=== PATIENT | male | born 1960 | race African-American/Black ===

== ENCOUNTER 2022-04-11 17:31 | Inpatient (IN) | payer BC ==
[2022-04-11 19:23] VITALS: BMI 18.8
[2022-04-11] MEDS ORDERED: Ondansetron ODT 4 MG TAB PO PRN (20:47)
[2022-04-11] MEDS ORDERED: Acetaminophen 325 MG TAB PO PRN (20:47)
[2022-04-11] MEDS ORDERED: guaiFENesin ER 600 MG TAB PO SCH (21:00)
[2022-04-11] MEDS: Oseltamivir 75 MG CAP PO SCH (21:07)
[2022-04-11] MEDS: Famotidine 20 MG TAB PO SCH (21:41)
[2022-04-11] MEDS ORDERED: guaiFENesin ER 600 MG TAB PO PRN (22:01)
[2022-04-12 07:33] LABS: #Lymphocytes 1.3 thou/uL (1.20-3.40); #Monocytes 0.9 thou/uL (0.11-0.59); #Neutrophils 9.8 thou/uL (1.40-6.50); %Basophils 0.1 % (0.0-1.0); %Lymphocytes 10.5 % (21.0-51.0); %Monocytes 7.3 % (0.0-10.0); Hemoglobin 12.3 g/dL (14.0-18.0); Mean Corpuscular HGB CONC 31.1 g/dL (32.0-36.0); Mean Corpuscular Hemoglobin 31.8 pg (27.0-31.0); Mean Platelet Volume 8.3 fL (7.4-10.4); Platelet Count 207 10x3/uL (130-400); RBC Distribution Width 12.2 % (11.5-14.5); Red Blood Cell (RBC) Count 3.86 mill/uL (4.70-6.10)
[2022-04-12 07:54] LABS: ALT (SGPT) 16 U/L (8-55); AST (SGOT) 22 U/L (5-34); Albumin 3.3 g/dL (3.5-5.0); Alkaline Phosphatase 64 U/L (40-110); Anion Gap 11 mmol/L (10-20); BUN (Urea Nitrogen) 13 mg/dL (8.4-25.7); Bilirubin, Total 0.4 mg/dL (0.2-1.2); Calc. Creatinine Clearance 78 mL/min (70-130); Carbon Dioxide 26 mmol/L (22-29); Chloride 104 mmol/L (98-107); Estimated GFR 102; Globulin 4.1 g/dL (2.4-3.5); Glucose 128 mg/dL (70-105); Protein, Total 7.4 g/dL (6.0-8.3); Sodium 136 mmol/L (136-145)
[2022-04-12] MEDS: Oseltamivir 75 MG CAP PO SCH ×2 (09:45→21:12)
[2022-04-12] MEDS: predniSONE 20 MG TAB PO SCH (09:45)
[2022-04-12] MEDS: Famotidine 20 MG TAB PO SCH ×2 (09:45→21:12)
[2022-04-12] MEDS: Enoxaparin Sodium 30 MG/0.3 ML SYRINGE SC SCH (09:45)
[2022-04-12] MEDS: Azithromycin 250 MG TAB PO SCH (09:45)
[2022-04-12] MEDS ORDERED: cefTRIAXone\\ROCEPHIN 1 GM in Sodium Chloride 0.9% 100 ML IVPB SCH (15:00)
[2022-04-12] MEDS: Mometasone 200 MCG/Formoterol 5 MCG 120 PUFF INHALER INH SCH (18:52)
[2022-04-13] MEDS: Mometasone 200 MCG/Formoterol 5 MCG 120 PUFF INHALER INH SCH (07:10)
[2022-04-13 07:20] LABS: ALT (SGPT) 30 U/L (8-55); AST (SGOT) 38 U/L (5-34); Albumin 3.2 g/dL (3.5-5.0); Alkaline Phosphatase 75 U/L (40-110); Anion Gap 13 mmol/L (10-20); BUN (Urea Nitrogen) 14 mg/dL (8.4-25.7); Bilirubin, Total 0.4 mg/dL (0.2-1.2); Calc. Creatinine Clearance 80 mL/min (70-130); Calcium 8.8 mg/dL (7.8-10.44); Carbon Dioxide 24 mmol/L (22-29); Chloride 104 mmol/L (98-107); Estimated GFR 103; Globulin 4.1 g/dL (2.4-3.5); Glucose 100 mg/dL (70-105); Potassium 3.8 mmol/L (3.5-5.1); Protein, Total 7.3 g/dL (6.0-8.3); Sodium 137 mmol/L (136-145)
[2022-04-13 07:26] LABS: Hemoglobin 12.1 g/dL (14.0-18.0); Mean Corpuscular HGB CONC 32.1 g/dL (32.0-36.0); Mean Corpuscular Hemoglobin 32.5 pg (27.0-31.0); Mean Platelet Volume 8.2 fL (7.4-10.4); Platelet Count 302 10x3/uL (130-400); RBC Distribution Width 12.4 % (11.5-14.5); Red Blood Cell (RBC) Count 3.73 mill/uL (4.70-6.10); White Blood Cell (WBC) Count 14.6 10x3/uL (4.8-10.8)
[2022-04-13 07:46] VITALS: BP 106/63; TEMP 97.2
[2022-04-13 08:21] LABS: #Monocytes 1.2 thou/uL (0.11-0.59); #Neutrophils 11.3 thou/uL (1.40-6.50); %Eosinophils 0.1 % (0.0-10.0); %Lymphocytes 13.8 % (21.0-51.0); %Monocytes 8.5 % (0.0-10.0); %Neutrophils 77.6 % (42.0-75.0); Band 14 % (5-11); Lymphocytes 16 % (21-51); MDiff Complete? YES; Monocytes 1 % (0-10); Neutrophil 69 % (42-75); Platelet Morphology Comment Appears Adequate; RBC Morphology Normal
[2022-04-13] MEDS: Enoxaparin Sodium 30 MG/0.3 ML SYRINGE SC SCH (08:33)
[2022-04-13] MEDS: Famotidine 20 MG TAB PO SCH (08:33)
[2022-04-13] MEDS: Azithromycin 250 MG TAB PO SCH (08:34)
[2022-04-13] MEDS: Oseltamivir 75 MG CAP PO SCH (08:34)
[2022-04-13] MEDS: predniSONE 20 MG TAB PO SCH (08:34)
== END 2022-04-13 12:38 | disposition home or self-care (01) | DRG 193 ==
LOC: T4-B 18:53 → INTOOBSV 18:53 → OBSVTOIN 04-12 10:13
PROVIDERS: ADMIT Student in an Organized Health Care Education/Training Program; ATTEND Student in an Organized Health Care Education/Training Program
DX: J10.1 Influenza due to other identified influenza virus with other respiratory manifestations (principal); J96.01 Acute respiratory failure with hypoxia; J44.1 Chronic obstructive pulmonary disease with (acute) exacerbation; J44.0 Chronic obstructive pulmonary disease with (acute) lower respiratory infection; I10 Essential (primary) hypertension; J15.9 Unspecified bacterial pneumonia; E78.5 Hyperlipidemia, unspecified; E86.0 Dehydration; Z90.49 Acquired absence of other specified parts of digestive tract; Z87.891 Personal history of nicotine dependence; Z79.899 Other long term (current) drug therapy
CPT/HCPCS: 36415; 80053; 84145; 85025; 87081; 94640; 94664; 96372; G0378; J1650; J7512; J7620

== ENCOUNTER 2022-09-27 15:16 | Inpatient (IN) | payer BC ==
[2022-09-27 17:29] VITALS: BMI 22.6
[2022-09-27] MEDS ORDERED: Acetaminophen 325 MG TAB PO PRN (18:24)
[2022-09-27] MEDS ORDERED: Ondansetron ODT 4 MG TAB PO PRN (18:24)
[2022-09-27] MEDS ORDERED: Ondansetron PF 4 MG/2 ML Vial IVP PRN (18:24)
[2022-09-27 19:24] LABS: SARS-CoV-2 NAA Rapid Test Not Detected (NotDetected)
[2022-09-27] MEDS: Famotidine 20 MG TAB PO SCH (20:07)
[2022-09-27] MEDS ORDERED: Albuterol 200 PUFF (6.7GM INHALER) INH PRN (23:43)
[2022-09-28] MEDS: Ketorolac Tromethamine 30 MG/ML VIAL IVP SCH ×4 (00:14→16:32)
[2022-09-28 06:43] LABS: #Eosinphils 0.2 thou/uL (0.0-0.7); #Monocytes 1.1 thou/uL (0.11-0.59); #Neutrophils 4.5 thou/uL (1.40-6.50); %Basophils 0.4 % (0.0-1.0); %Eosinophils 2.7 % (0.0-10.0); %Lymphocytes 24.8 % (21.0-51.0); %Monocytes 14.1 % (0.0-10.0); %Neutrophils 57.6 % (42.0-75.0); Hemoglobin 11.3 g/dL (14.0-18.0); Mean Corpuscular Hemoglobin 29.5 pg (27.0-31.0); Mean Platelet Volume 8.9 fL (7.4-10.4); Platelet Count 372 10x3/uL (130-400); RBC Distribution Width 13.9 % (11.5-14.5); Red Blood Cell (RBC) Count 3.83 mill/uL (4.70-6.10); White Blood Cell (WBC) Count 7.9 10x3/uL (4.8-10.8)
[2022-09-28 07:05] LABS: Anion Gap 11 mmol/L (10-20); BUN (Urea Nitrogen) 11 mg/dL (8.4-25.7); Calc. Creatinine Clearance 68 mL/min (70-130); Carbon Dioxide 26 mmol/L (22-29); Chloride 105 mmol/L (98-107); Estimated GFR 82; Glucose 91 mg/dL (70-105); Potassium 4.9 mmol/L (3.5-5.1); Sodium 137 mmol/L (136-145)
[2022-09-28] MEDS: Amlodipine 5 MG TAB PO SCH (08:18)
[2022-09-28] MEDS: Famotidine 20 MG TAB PO SCH ×2 (08:19→21:01)
[2022-09-28] MEDS: Rosuvastatin 10 MG TAB PO SCH (08:19)
[2022-09-28] MEDS ORDERED: cefTRIAXone\\ROCEPHIN 2 GM in Sodium Chloride 0.9% 100 ML IVPB SCH (13:00)
[2022-09-28] MEDS ORDERED: Azithromycin 500 MG in Sodium Chloride 0.9% 250 ML 250 ML IVPB SCH (14:00)
[2022-09-29] MEDS: Ketorolac Tromethamine 30 MG/ML VIAL IVP SCH ×4 (00:17→11:16)
[2022-09-29 07:58] VITALS: BP 129/64; TEMP 98.4
[2022-09-29] MEDS: Famotidine 20 MG TAB PO SCH (08:23)
[2022-09-29] MEDS: Amlodipine 5 MG TAB PO SCH (08:23)
[2022-09-29] MEDS: Rosuvastatin 10 MG TAB PO SCH (08:23)
== END 2022-09-29 11:58 | disposition home or self-care (01) | DRG 194 ==
LOC: T4-B 16:46
PROVIDERS: ADMIT Internal Medicine; ATTEND Internal Medicine
DX: J18.9 Pneumonia, unspecified organism (principal); J44.0 Chronic obstructive pulmonary disease with (acute) lower respiratory infection; I10 Essential (primary) hypertension; E78.5 Hyperlipidemia, unspecified; Z20.822 Contact with and (suspected) exposure to COVID-19; Z79.51 Long term (current) use of inhaled steroids; Z79.4 Long term (current) use of insulin; Z79.899 Other long term (current) drug therapy; Z90.49 Acquired absence of other specified parts of digestive tract; Z87.891 Personal history of nicotine dependence
CPT/HCPCS: 36415; 80048; 85025; J0456; J0696; J1650; J1885; J3490; J7050; U0002